=== PATIENT | female | born 1980 | race Caucasian/White ===

== ENCOUNTER 2018-05-16 00:53 | Emergency (ER) | payer BC, MEDICAID, OTHER ==
[~2018-05-16] VITALS: Ht 165.1 cm; Wt 72.1 kg
[~2018-05-16 00:53] MED LIST: DOCU-131 PO; HYDR-3240 PO; IBUP-1222 PO
[2018-05-16] MEDS ORDERED: KETOROLAC 30 MG/1 ML ONE (01:30)
[2018-05-16] MEDS ORDERED: ONDANSETRON 2MG/ML, 2ML ONE (01:30)
[2018-05-16 01:32] LABS: CULTURE INDICATED? YES; MICROSCOPIC INDICATED
[2018-05-16 01:51] LABS: HCG UR SG 1.031 (1.003-1.030)
[2018-05-16 01:54] LABS: BASOPHILS # (AUTO) 0.06 x10^3/uL (0-0.1); BASOPHILS % (AUTO) 1 % (0-1); EOSINOPHILS # (AUTO) 0.24 x10^3/uL (0-0.4); EOSINOPHILS % (AUTO) 3 % (1-7); LYMPHOCYTES # (AUTO) 2.99 x10^3/uL (1-3.4); LYMPHOCYTES % (AUTO) 37 % (22-44); MD NO; MEAN CORPUSCULAR HEMOGLOBIN 27.9 pg (27.0-34.8); MEAN CORPUSCULAR HGB CONC 33.5 g/dL (32.4-35.8); MEAN CORPUSCULAR VOLUME 83.2 fL (80-100); MEAN PLATELET VOLUME 8.9 fL (7.4-10.4); MONOCYTES # (AUTO) 0.54 x10^3/uL (0.2-0.8); MONOCYTES % (AUTO) 7 % (2-9); NEUTROPHILS # (AUTO) 4.18 x10^3/uL (1.8-6.8); NEUTROPHILS % (AUTO) 52 % (42-75); PLATELET COUNT 302 x10^3/uL (130-400); RED BLOOD COUNT 4.73 x10^6/uL (3.82-5.3); RED CELL DISTRIBUTION WIDTH 13.9 % (9.6-15.2)
[2018-05-16] MEDS ORDERED: ONDANSETRON 2MG/ML, 2ML IVPush ONE (02:00)
[2018-05-16] MEDS ORDERED: KETOROLAC 30 MG/1 ML IVPush ONE (02:00)
[2018-05-16 02:06] LABS: ALANINE AMINOTRANSFERASE 20 U/L (12-78); ALBUMIN 3.7 g/dL (3.4-5.0); ANION GAP 8 mmol/L (5-15); CHLORIDE 107 mmol/L (98-107); CREATININE 1.04 mg/dL (0.55-1.02)
[2018-05-16 02:09] LABS: ALKALINE PHOSPHATASE 64 U/L (45-117); BILIRUBIN,TOTAL 0.3 mg/dL (0.2-1.0); TOTAL PROTEIN 7.8 g/dL (6.4-8.2)
[2018-05-16 02:44] VITALS: BP 107/63
== END 2018-05-16 03:50 | disposition home or self-care (01) ==
LOC: ED 03:45
DX: N20.1 Calculus of ureter (principal); R10.9 Unspecified abdominal pain; R11.2 Nausea with vomiting, unspecified
CPT/HCPCS: 36415; 74176; 80053; 81001; 81025; 83690; 85025; 87086; 96374; 96375; 99285; J1885; J2405

== ENCOUNTER 2019-12-03 16:54 | Outpatient (CLI) | payer BC | END 2019-12-03 23:59 | disposition home or self-care (01) | LOC: RAD 16:54 | PROVIDERS: ATTEND Physician Assistant | DX: M79.604 Pain in right leg (principal) ==